=== PATIENT | female | born 1985 | race Caucasian/White ===

== ENCOUNTER 2017-05-09 16:46 | Emergency (ER) | payer OTHER ==
[~2017-05-09] VITALS: Ht 152.4 cm; Wt 49.9 kg
[~2017-05-09 16:46] MED LIST: ACETAMINOPHEN-1 EAC1 PO; AMOXICILLIN 50500 MG PO; AMOXICILLIN500 M1 PO; CLEOCIN HCL150 MG PO; DOXYCYCLINE 10100 MG PO; IBUPROFEN 800800 M1 PO; KEFLEX500 MG PO; NOHOMEMEDICATIONS; VICOPROFEN 2001 EACH PO
[2017-05-09] MEDS ORDERED: ALBUTEROL2.5 MG/31 INH (17:52)
[2017-05-09] MEDS ORDERED: TESSALON PERLE100 MG PO (17:52)
[2017-05-09 17:56] LABS: INFLUENZA A ANTIGEN None Detected (None Detect); INFLUENZA B ANTIGEN None Detected (None Detect)
[2017-05-09 18:02] VITALS: BP 118/74
== END 2017-05-09 18:03 | disposition home or self-care (01) ==
LOC: M.ERS 16:46
PROVIDERS: Emergency Medicine
DX: B34.9 Viral infection, unspecified (principal); F17.200 Nicotine dependence, unspecified, uncomplicated; Z88.5 Allergy status to narcotic agent; Z88.6 Allergy status to analgesic agent; Z85.41 Personal history of malignant neoplasm of cervix uteri

== ENCOUNTER 2019-04-26 02:09 | Emergency (ER) | payer OTHER ==
[~2019-04-26] VITALS: Ht 152.4 cm; Wt 54.4 kg
[~2019-04-26 02:09] MED LIST changes: +ALBUTEROL2.5 MG/31 INH; +TESSALON PERLE100 MG PO
[2019-04-26 02:41] LABS: INFLUENZA A ANTIGEN Negative (Negative)
[2019-04-26] MEDS ORDERED: PROMETHAZINE-C473 ML PO (02:54)
[2019-04-26] MEDS ORDERED: TAMIFLU75 MG PO (02:54)
[2019-04-26 03:01] VITALS: BP 132/84
== END 2019-04-26 03:01 | disposition home or self-care (01) ==
LOC: M.ERS 02:09
PROVIDERS: Personal Emergency Response Attendant
DX: J10.1 Influenza due to other identified influenza virus with other respiratory manifestations (principal); Z85.41 Personal history of malignant neoplasm of cervix uteri; Z88.6 Allergy status to analgesic agent